=== PATIENT | female | born 1980 | race Caucasian/White ===

== ENCOUNTER → 2020-01-03 13:00 | Outpatient (CLI) | payer OTHER, SELFPAY ==
--- NOTE | 2020-01-03 13:05 | CT_ITS ---
STUDY: CT CHEST WITHOUT CONTRAST REASON FOR EXAM: Female, 39 years old. Abnormal EKG, abnormal stress test, limited CT chest over-read ONLY. Overread examination for the lungs. RADIATION DOSAGE (If Supplied By Facility): CTDIvol = ( 35.64 ) mGy, DLP = ( 1395.25 ) mGycm TECHNIQUE: Transaxial imaging was performed without the administration of intravenous contrast material. Individualized dose optimization techniques were used for this CT. COMPARISON: None. FINDINGS: The lungs are normal. There is no demonstrated pleural abnormality. Normal heart and pericardium. Normal mediastinum. Normal hilar regions. Normal unenhanced pulmonary arteries. Normal aorta arch and descending thoracic aorta. Normal osseous structures. Fatty infiltration of the liver. CT/Limited Chest CT w/CCTA IMPRESSION: No acute abnormality is seen within the chest. Electronically Signed: Dante Mauricio, at 8:09 EDT , Service support ,
[2020-01-03 13:24] VITALS: PULSE 66; RESP 16; O2SAT 100; BMI 29.2
[2020-01-03 13:52] VITALS: PULSE 62
[2020-01-03] MEDS: Nitroglycerin SL (ED/IMG/CATH) 0.4 MG TABLET SUBLINGUAL (13:52)
[2020-01-03 14:10] VITALS: BP 135/83; PULSE 69; RESP 16; O2SAT 100
--- NOTE | 2020-01-04 08:36 | CCTA.WCONT ---
CCTA w/Cont Coronary Arteries Date of Study:: 01/03/20 Abnormal stress test The patient was brought to the radiology suite. In the postabsorptive nonsedated state. The patient was then administered 100 cc of nonionic intravenous contrast agent. High-resolution computed tomographic images were obtained with particular attention paid to the coronary arteries. Images of the examination were analyzed for the presence and extent of coronary artery calcification using the coronary calcium quantification software. The patient tolerated the procedure well and there were no complications. The images were reconstructed in 0.625 mm slices and images were obtained. Coronary calcium score. Left main coronary artery score 0 Left anterior descending artery score 0 Left circumflex artery score 0 Right coronary artery score 0 Total Agatston score 0. Percentile ranking 50%. Coronary arteriography: Images of the left main coronary artery were obtained it appears to arise from the left coronary cusp no significant stenosis was noted. The vessel bifurcated to the left anterior descending artery and left circumflex artery. Left anterior descending artery: The left anterior descending artery coursed towards the apex of the left ventricle. No significant stenosis was noted in this vessel. Left circumflex artery: This was a nondominant vessel. Giving off a first small obtuse marginal branch. No significant stenosis was noted. Right coronary artery: The right coronary artery was a dominant vessel. It arose from the right coronary cusp. There was no obvious stenosis noted. Of note was the fact that the image quality was not optimal. Subtle stenosis could be not recognized. Conclusion: Coronary calcium score 0 CT coronary angiogram demonstrating no evidence of obstructive stenosis. LEFT MAIN CORONARY ARTERY: [] LEFT ANTERIOR DESCENDING CORONARY ARTERY: [] LEFT CIRCUMFLEX CORONARY ARTERY: [] RIGHT CORONARY ARTERY: [] THORACIC AORTA: [] PULMONARY ARTERY: [] LEFT ATRIUM/APPENDAGE: [] MITRAL VALVE: [] AORTIC VALVE: [] LEFT VENTRICLE: [] CORONARY CALCIUM SCORE: []
== END ==
LOC: CT 13:03
PROVIDERS: PCP Nurse Practitioner Primary Care
DX: I10 Essential (primary) hypertension (principal); E66.01 Morbid (severe) obesity due to excess calories; R94.39 Abnormal result of other cardiovascular function study
CPT/HCPCS: 75571; 75574; 76380; Q9967